=== PATIENT | female | born 1980 | race American Indian/Alaskan Native ===

== ENCOUNTER 2021-12-31 07:18 | Emergency (ER) | payer MEDICAID ==
[2021-12-31] MEDS ORDERED: LET TOPICAL (LIDOCAINE/EPINEPHRINE/TETRACAINE) 3 ML TP ONE (08:08)
[2021-12-31] MEDS ORDERED: TETANUS,DIPH,PERTUSS(ACELL) VACCINE 0.5 ML SYRINGE IM ONE (08:08)
--- NOTE | 2021-12-31 08:41 | Cat Scan Report ---
CT HEAD WITHOUT CONTRAST INDICATION / CLINICAL INFORMATION: Head injury with forehead laceration after fall. TECHNIQUE: All CT scans at this location are performed using CT dose reduction for ALARA by means of automated exposure control. COMPARISON: None available. FINDINGS: BRAIN PARENCHYMA: No acute intracranial hemorrhage. No evidence of recent infarct. No mass effect or midline shift. VENTRICULAR SYSTEM/EXTRA-AXIAL SPACES: Ventricles are normal for age. No extra-axial fluid collection . ORBITS: Normal as visualized. SKELETAL SYSTEM/SOFT TISSUES: A small forehead laceration is seen just to the right of midline with s urrounding mild edema. No other significant soft tissue or osseous abnormality. PARANASAL SINUSES/MASTOID AIR CELLS: No significant abnormality. ADDITIONAL FINDINGS: None. IMPRESSION: 1. No acute intracranial abnormality. 2. Forehead laceration with surrounding mild edema. Signer Name: Jeff Beasley MD Signed: 12/31/2021 8:36 AM Workstation Name: [id number]
--- NOTE | 2021-12-31 08:43 | Cat Scan Report ---
CT cervical spine wo con INDICATION: Neck pain after fall. TECHNIQUE: Axial CT images of the cervical spine were obtained. Sagittal and coronal reformatted images were pro duced. All CT scans at this location are performed using CT dose reduction for ALARA by means of auto mated exposure control. COMPARISON: None available. FINDINGS: ALIGNMENT: Normal alignment. VERTEBRAE: No fracture. Vertebral body heights are preserved. C1 and C2 are congruent. SPONDYLOSIS: No significant spondylosis. SOFT TISSUES: No significant soft tissue abnormality. ADDITIONAL FINDINGS: No significant additional findings. IMPRESSION: 1. No acute abnormality of the cervical spine. Signer Name: Jeff Beasley MD Signed: 12/31/2021 8:38 AM Workstation Name: [id number]
--- NOTE | 2021-12-31 08:46 | Emergency Department Report ---
ED Head Trauma HPI - General Chief complaint: Head Injury Stated complaint: HEAD INJURY Time Seen by Provider: 12/31/21 07:52 Source: patient Mode of arrival: Ambulatory Limitations: No Limitations - History of Present Illness Initial comments: This is a 41-year-old female nontoxic, well nourished in appearance, no acute signs of distress presents to the ED with c/o of frontal scalp laceration that occurred yesterday around 11 PM. Patient stated she woke up and tripped and fell and hit her head against the wall. Patient otherwise denies any other complaints or symptoms. Denies any LOC. Denies any neck or back pain. Patient stated bleeding is under control. Denies any numbness, tingling, fever, chills, nausea, vomiting, chest pain, shortness of breath, headache or stiff neck. Denies any visual changes. Patient denies any allergies to significant past medical history. Patient is that he is not up-to-date with tetanus. -: Last night Location: frontal Loss of Consciousness: no Previous Trauma to this Area: No Place: home Radiation: none Severity: mild Severity scale (0 -10): 3 Quality: aching Consistency: constant Provoking factors: none known Other Injuries: laceration Associated Symptoms: denies other symptoms. denies: confusion, amnesia, repetitive questioning, vision changes, nausea, vomiting, vertigo, syncope, numbness, weakness, tingling, neck pain - Related Data Previous Rx's Medication Instructions Recorded Last Taken Type Naproxen 500 mg PO Q12H PRN #12 tab 12/31/21 Unknown Rx Sulfamethoxazole/Trimethoprim 1 each PO BID #14 tab 12/31/21 Unknown Rx [Bactrim DS TAB] Allergies/Adverse reactions: Allergies Allergy/AdvReac Type Severity Reaction Status Date / Time No Known Allergies Allergy Unverified 12/31/21 07:45 ED Review of Systems ROS: Stated complaint: HEAD INJURY Other details as noted in HPI Comment: All other systems reviewed and negative Constitutional: denies: chills, fever Eyes: denies: eye pain, eye discharge, vision change ENT: denies: ear pain, throat pain Respiratory: denies: cough, shortness of breath, wheezing Cardiovascular: denies: chest pain, palpitations Endocrine: no symptoms reported Gastrointestinal: denies: abdominal pain, nausea, diarrhea Genitourinary: denies: urgency, dysuria, discharge Musculoskeletal: denies: back pain, joint swelling, arthralgia Skin: denies: rash, lesions Neurological: headache. denies: weakness, numbness, paresthesias, confusion, abnormal gait, vertigo Psychiatric: denies: anxiety, depression Hematological/Lymphatic: denies: easy bleeding, easy bruising ED Past Medical Hx - Past Medical History Previous Medical History?: Yes Additional medical history: - Surgical History Past Surgical History?: Yes Additional Surgical History: x 1 - Social History Smoking Status: Never Smoker Substance Use Type: Other - Medications Home Medications: Home Medications Medication Instructions Recorded Confirmed Last Taken Type Naproxen 500 mg PO Q12H PRN #12 tab 12/31/21 Unknown Rx Sulfamethoxazole/Trimethoprim 1 each PO BID #14 tab 12/31/21 Unknown Rx [Bactrim DS TAB] ED Physical Exam - General Limitations: No Limitations General appearance: alert, in no apparent distress - Head Head exam: Present: normocephalic - Expanded Head Exam Expanded Head exam: Present: laceration 1 - 4 cm superficial laceration here - Eye Eye exam: Present: normal appearance, PERRL, EOMI Pupils: Present: normal accommodation - Neck Neck exam: Present: normal inspection, full ROM. Absent: lymphadenopathy - Respiratory Respiratory exam: Absent: respiratory distress - Cardiovascular Cardiovascular Exam: Present: regular rate - Extremities Exam Extremities exam: Present: normal inspection, full ROM, normal capillary refill. Absent: tenderness - Back Exam Back exam: Present: normal inspection, full ROM. Absent: tenderness, CVA tenderness (R), CVA tenderness (L), muscle spasm, paraspinal tenderness, vertebral tenderness, rash noted - Neurological Exam Neurological exam: Present: alert, oriented X3, normal gait - Expanded Neurological Exam Expanded Patient oriented to: Present: person, place, time Cranial nerves: EOM's Intact: Normal, Facial Sensation: Normal Cerebellar function: Finger to Nose: Normal Upper motor neuron: Pronator Drift: Normal, Sensory Extinction: Normal Motor strength exam: RUE: 5, LUE: 5, RLE: 5, LLE: 5 Best Eye Response (Lyons): (4) open spontaneously Best Motor Response (Max): (6) obeys commands Best Verbal Response (Lyons): (5) oriented Lyons Total: 15 - Psychiatric Psychiatric exam: Present: normal affect, normal mood - Skin Skin exam: Present: warm, dry, intact, normal color. Absent: rash ED Course Vital Signs 12/31/21 07:45 Temperature 98.5 F Pulse Rate 72 Respiratory 20 Rate Blood Pressure 148/88 O2 Sat by Pulse 99 Oximetry - Reevaluation(s) Reevaluation #1: 12/31/21 08:45 Patient is speaking in full sentences with no signs of distress noted. - Laceration /Wound Repair Face Wound Location: face (frontal scalp) Wound Length (cm): 4 Wound's Depth, Shape: superficial Wound Explored: clean Irrigated w/ Saline (ccs): 40 Number of Sutures: 4 (jessica) Layer Closure?: No Sterile Dressing Applied?: Yes Progress: Under sterile field, I used Betadine to clean the area. I then used 40 mL of normal saline to flush the area. I then used a stapler with total of 4 jessica applied. (Patient requested for jessica rather than sutures). I then applied a sterile 4 x 4 with tape. Minimal bleeding noted but is under control. Patient tolerated procedure well with no signs of distress. - Radiology Data [facility] [address] [id number] Cat Scan Report Signed Patient: MARTHA OROZCO MR#: [id number] : 1980 Acct:[id number] Age/Sex: 41 / F ADM Date: 12/31/21 Loc: ED Attending Dr: Ordering Physician: KAUSHIK BURDICK NP Date of Service: 12/31/21 Procedure(s): CT cervical spine wo con Accession Number(s): [id number] cc: KAUSHIK BURDICK NP CT cervical spine wo con INDICATION: Neck pain after fall. TECHNIQUE: Axial CT images of the cervical spine were obtained. Sagittal and coronal reformatted images were produced. All CT scans at this location are performed using CT dose reduction for ALARA by means of automated exposure control. COMPARISON: None available. FINDINGS: ALIGNMENT: Normal alignment. VERTEBRAE: No fracture. Vertebral body heights are preserved. C1 and C2 are congruent. SPONDYLOSIS: No significant spondylosis. SOFT TISSUES: No significant soft tissue abnormality. ADDITIONAL FINDINGS: No significant additional findings. IMPRESSION: 1. No acute abnormality of the cervical spine. Signer Name: Jeff Beasley MD Signed: 12/31/2021 8:38 AM Workstation Name: [id number] Transcribed By: VIRY Dictated By: Jeff Beasley MD Electronically Authenticated By: Jeff Beasley MD Signed Date/Time: 12/31/21837 DD/ 5 TD/TT: [facility] [address] [place] [address] Cat Scan Report Signed Patient: MARTHA OROZCO MR#: [id number] : 1980 Acct:[id number] Age/Sex: 41 / F ADM Date: 12/31/21 Loc: ED Attending Dr: Ordering Physician: KAUSHIK BURDICK NP Date of Service: 12/31/21 Procedure(s): CT head/brain wo con Accession Number(s): [id number] cc: KAUSHIK BURDICK NP CT HEAD WITHOUT CONTRAST INDICATION / CLINICAL INFORMATION: Head injury with forehead laceration after fall. TECHNIQUE: All CT scans at this location are performed using CT dose reduction for ALARA by means of automated exposure control. COMPARISON: None available. FINDINGS: BRAIN PARENCHYMA: No acute intracranial hemorrhage. No evidence of recent infarct. No mass effect or midline shift. VENTRICULAR SYSTEM/EXTRA-AXIAL SPACES: Ventricles are normal for age. No extra- axial fluid collection. ORBITS: Normal as visualized. SKELETAL SYSTEM/SOFT TISSUES: A small forehead laceration is seen just to the right of midline with surrounding mild edema. No other significant soft tissue or osseous abnormality. PARANASAL SINUSES/MASTOID AIR CELLS: No significant abnormality. ADDITIONAL FINDINGS: None. IMPRESSION: 1. No acute intracranial abnormality. 2. Forehead laceration with surrounding mild edema. Signer Name: Jeff Beasley MD Signed: 12/31/2021 8:36 AM Workstation Name: [id number] Transcribed By: MN Dictated By: Jeff Beasley MD Electronically Authenticated By: Jeff Beasley MD Signed Date/Time: 12/31/21835 DD/ TD/TT: - Medical Decision Making This is a 41-year-old female that presents with laceration. Patient is stable and was examined by me. The laceration stapling has been performed and has been performed and patient tolerated well. A sterile dressing has been applied. Patient was educated on proper wound care. Patient is notified of the imaging results with no questions noted by the patient. Patient was instructed to return in 10 days for staple removal. Patient was instructed to refer to Follow-up with a primary care doctor in 3-5 days or if symptoms worsen and continue return to emergency room as soon as possible. At time of discharge, the patient does not seem toxic or ill in appearance. No acute signs of distress noted. Patient agrees to discharge treatment plan of care. No further questions noted by the patient. - NEXUS Criteria Focal neurological deficit present: No Midline spinal tenderness present: No Altered level of consciousness: No Intoxication present: No Distracting injury present: No NEXUS results: C-Spine can be cleared clinically by these results. Imaging is not required. Critical care attestation.: If time is entered above; I have spent that time in minutes in the direct care of this critically ill patient, excluding procedure time. ED Disposition Clinical Impression: Laceration of scalp Qualifiers: Encounter type: initial encounter Qualified Code(s): S01.01XA - Laceration without foreign body of scalp, initial encounter Disposition: HOME / SELF CARE / HOMELESS Is pt being admited?: No Does the pt Need Aspirin: No Condition: Stable Instructions: Laceration Care, Adult Additional Instructions: Follow-up with a primary care doctor in 3-5 days or if symptoms worsen and continue return to emergency room as soon as possible. Return in 10 days for staple removal. Prescriptions: Sulfamethoxazole/Trimethoprim [Bactrim DS TAB] 1 each PO BID #14 tab Naproxen 500 mg PO Q12H PRN #12 tab PRN Reason: Pain , Severe (7-10) Referrals: PRIMARY MD JOEL [Primary Care Provider] - 3-5 Days LORI JETER MD [Staff Physician] - 3-5 Days Forms: Work/School Release Form(ED) Time of Disposition: 09:56
[2021-12-31 10:23] VITALS: BP 145/80
== END 2021-12-31 10:23 | disposition home or self-care (01) ==
LOC: ED 07:18
DX: S01.01XA Laceration without foreign body of scalp, initial encounter (principal); X58.XXXA Exposure to other specified factors, initial encounter; Y93.89 Activity, other specified; Y92.89 Other specified places as the place of occurrence of the external cause; Y99.8 Other external cause status
CPT/HCPCS: 70450; 72125; 90715; 96372; 99283